=== PATIENT | male | born 1990 | race African-American/Black ===

== ENCOUNTER 2018-10-01 20:22 | Inpatient (IN) | payer MEDICAID ==
[~2018-10-01] VITALS: Ht 175.3 cm; Wt 90.7 kg
[2018-10-01] MEDS ORDERED: NKM (20:44)
[2018-10-01 20:50] VITALS: BP 126/80
--- NOTE | 2018-10-01 20:53 | NUR ---
ED Nurse Note: pt walked in due to lower abdominal pain x 2 days. pt stated he has diarrhea started yesterday. denies n and v. pt states his pain is located in the abdomen and and radiates to his anus. skin does not tent. pts eyes do not appear sunken. pt states his pain is 8/10 that feels sharp and throbing.
--- NOTE | 2018-10-01 20:59 | Emergency Room Report ---
History of Present Illness General Chief Complaint: Abdominal Pain Source: Patient Present Illness [facility] This is a 28-year-old male with no past medical history. He presents with chief complaint abdominal pain. Onset yesterday. He had severe sharp pain in the lower quadrant area. Comes and go. Have diarrhea but no vomiting. No loss of appetite. No fever chills with pain is 9 out of 10 at most severe. Denies any hematuria. Nothing made it better. Palpation makes it worse. Allergies: Coded Allergies: WOOL (Verified Allergy, Unknown, 10/01/18) Uncoded Allergies: PENICILLIN (Allergy, Unknown, 10/01/18) Patient History Past Medical History: none, see triage record, old chart reviewed Past Surgical History: none Pertinent Family History: none Social History: Denies: smoking Immunizations: other Reviewed Nursing Documentation: PMH: Agreed; PSxH: Agreed Nursing Documentation-PMH Past Medical History: No Stated History Review of Systems Eye: Denies: eye pain, blurred vision ENT: Denies: ear pain, nose congestion, throat swelling Respiratory: Denies: cough, shortness of breath Cardiovascular: Denies: chest pain, palpitations Gastrointestinal: Reports: abdominal pain, diarrhea; Denies: nausea, vomiting Musculoskeletal: Denies: back pain, joint pain Skin: Denies: rash Neurological: Denies: headache, numbness Endocrine: Denies: increased thirst, increased urine Hematologic/Lymphatic: Denies: easy bruising All Other Systems: negative except mentioned in HPI Physical Exam Vital Signs Date Time Temp Pulse Resp B/P (MAP) Pulse Ox O2 Delivery O2 Flow Rate FiO2 10/01/18 20:37 98.2 65 16 126/80 97 Room Air 10/01/18 20:50 99 vitals normal Sp02 EP Interpretation: reviewed, normal General Appearance: well appearing, no apparent distress, alert Head: normocephalic, atraumatic Eyes: bilateral eye PERRL, bilateral eye EOMI ENT: hearing grossly normal, normal pharynx Neck: full range of motion, supple, no meningismus Respiratory: chest non-tender, lungs clear, normal breath sounds Cardiovascular #1: regular rate, rhythm, no murmur Gastrointestinal: normal bowel sounds, no mass, no organomegaly, no bruit, non- distended, tenderness - Right lower quadrant Musculoskeletal: back normal, gait/station normal, normal range of motion Psychiatric: mood/affect normal Skin: warm/dry Medical Decision Making Diagnostic Impression: Primary Impression: Appendicitis, acute Qualified Codes: K35.30 - Acute appendicitis with localized peritonitis, without perforation or gangrene Additional Impression: LENNY (acute kidney injury) ER Course Patient presents with abdominal pain and has acute appendicitis on CT scan. Patient kept nothing by mouth. Antibiotic started. Patient will be admitted here. Dr. Keyes, surgeon, consulted. I contacted Dr. Santos for admission. Lab Results Impression labs with elevated creatine CT/MRI/US Diagnostic Results CT/MRI/US Diagnostic Results : Imaging Test Ordered: CT abdomen and pelvis Impression Read by radiologist. Early acute appendicitis Last Vital Signs Date Time Temp Pulse Resp B/P (MAP) Pulse Ox O2 Delivery O2 Flow Rate FiO2 10/01/18 20:50 98.2 61 16 126/80 97 Room Air 10/01/18 20:50 99 Status: improved Disposition: ADMITTED INPATIENT Condition: Serious Charles Pathak MD Oct 01, 2018 20:59
[2018-10-01] MEDS ORDERED: Morphine Sulfate 4mg/ml Inj (IV USE ONLY) IVP ONE ×2 (21:00→22:00)
[2018-10-01 21:24] LABS: ANION GAP 9 mmol/L (5-15); BLOOD UREA NITROGEN 14 mg/dL (7-18); CALCIUM 8.9 MG/DL (8.5-10.1); CARBON DIOXIDE 26 MMOL/L (21-32); CHLORIDE 106 MMOL/L (98-107); CREATININE 1.5 MG/DL (0.55-1.30); POTASSIUM 4.1 MMOL/L (3.5-5.1); SODIUM 141 MMOL/L (136-145)
[2018-10-01 21:29] LABS: APPEARANCE,URINE CLEAR; BILIRUBIN, URINE NEGATIVE (NEGATIVE); GLUCOSE, URINE (UA) NEGATIVE (NEGATIVE); KETONES,URINE 1+ (NEGATIVE); LEUKOCYTE ESTERASE ,URINE 1+ (NEGATIVE); NITRITE,URINE NEGATIVE (NEGATIVE); PH,URINE 6 (4.5-8.0); PROTEIN,URINE NEGATIVE (NEGATIVE); UROBILINOGEN,URINE 1 MG/DL (0.0-1.0)
[2018-10-01 21:29] LABS: ALANINE AMINOTRANSFERASE 26 U/L (12-78); ALBUMIN 3.8 G/DL (3.4-5.0); ALBUMIN/GLOBULIN RATIO 1.2 (1.0-2.7); ALKALINE PHOSPHATASE 77 U/L (46-116); ASPARTATE AMINO TRANSFERASE 14 U/L (15-37); BASOPHILS % (AUTO) 1.1 % (0.0-2.0); BILIRUBIN,TOTAL 0.3 MG/DL (0.2-1.0); EOSINOPHILS % (AUTO) 1.1 % (0.0-3.0); HEMATOCRIT 47.4 % (42.0-52.0); LYMPHOCYTES % (AUTO) 24.1 % (20.0-45.0); MEAN CORPUSCULAR VOLUME 92 FL (80-99); MONOCYTES % (AUTO) 4.5 % (1.0-10.0); NEUTROPHILS % (AUTO) 69.2 % (45.0-75.0); PLATELET COUNT 239 K/UL (150-450); RED BLOOD COUNT 5.13 M/UL (4.70-6.10); RED CELL DISTRIBUTION WIDTH 11.8 % (11.6-14.8); WHITE BLOOD COUNT 8.7 K/UL (4.8-10.8)
[2018-10-01 21:31] LABS: COLOR,URINE YELLOW
[2018-10-01] MEDS ORDERED: Piperacillin/Tazobactam 3.375 GM in NS 110 ML IVPB ONE (22:00)
[2018-10-01 22:24] VITALS: BP 128/83
--- NOTE | 2018-10-01 22:50 | Pre-Procedure Note/Attestation ---
Pre-Procedure Note/Attestation Complete Prior to Procedure Planned Procedure: not applicable Procedure Narrative: Laparoscopic Appendectomy possible open Appendectomy Indications for Procedure Pre-Operative Diagnosis: Acute appendicitis Attestation I attest that I discussed the nature of the procedure; its benefits; risks and complications; and alternatives (and the risks and benefits of such alternatives ), prior to the procedure, with the patient (or the patient's legal shipping services sales representative). I attest that, if there was a reasonable possibility of needing a blood transfusion, the patient (or the patient's legal shipping services sales representative) was given the [facility] standardized written summary, pursuant to the Abdiel Carlos Blood Safety Act ([place] Health and Safety Code # 1645, as amended). I attest that I re-evaluated the patient just prior to the surgery and that there has been no change in the patient's H&P, except as documented below: Wellington Keyes MD Oct 01, 2018 22:50
[2018-10-01] MEDS ORDERED: Bupivacaine w/Epi 0.5% 30ml Vial INJ ONE (22:52)
[2018-10-01] MEDS ORDERED: Bacitracin 50000 Units Vial ONE (22:52)
[2018-10-01] MEDS ORDERED: Bupivacaine 0.25% Inj 30ml INJ ONE (22:52)
[2018-10-01 22:57] VITALS: BP 133/78
[2018-10-01] MEDS ORDERED: Sterile Water Irrig 1000ml IRRIG ONE (23:00)
[2018-10-01] MEDS ORDERED: Midazolam 2mg/2ml Inj ONE (23:00)
[2018-10-01] MEDS ORDERED: LR 1000ml ONE (23:00)
[2018-10-01] MEDS ORDERED: fentaNYL 100 mcg/2 mL IV ONE (23:00)
[2018-10-01] MEDS ORDERED: NS Irrig 1000ml ONE (23:00)
[2018-10-01] MEDS ORDERED: Ketorolac 30mg Inj ONE (23:05)
[2018-10-01] MEDS ORDERED: Lidocaine 1% MPF 10mg/ml 5ml ONE (23:05)
[2018-10-01] MEDS ORDERED: Propofol 200mg/20ml IV ONE (23:05)
[2018-10-01] MEDS ORDERED: Zemuron 50mg/5ml Inj IV ONE (23:10)
[2018-10-01] MEDS ORDERED: Succinylcholine 20mg/ml 10ml vial ONE (23:10)
--- NOTE | 2018-10-01 23:13 | NUR ---
ED Nurse Note: Pt tranfered to OR. report given to KINDERGARTEN AIDE.
--- NOTE | 2018-10-01 23:30 | Pre-op HX & Phy Repo 2 SIG ---
DATE OF ADMISSION: 10/01/2018 CONSULTING PHYSICIAN: Wellington Keyes M.D. REQUESTING PHYSICIAN: ER physician. HISTORY OF PRESENT ILLNESS: This is a 28-year-old male, who presented with abdominal pain for two days. He stated the pain was initially periumbilical and then it localized at right lower quadrant. He denied any nausea or vomiting. He denied any fever. He has been having diarrhea since this morning. He denied fever, but he had mild cough. He denies dysuria or frequency. He denies any previous history of similar pain. PAST MEDICAL HISTORY: He claims to be allergic to penicillin. He denies diabetes, hypertension, cardiac or renal diseases. He had a history of asthma as a childhood. PAST SURGICAL HISTORY: None. MEDICATIONS: None. SOCIAL HISTORY: The patient is a 28-year-old male, single with no children. 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 Drinks occasionally. REVIEW OF SYSTEMS: Noncontributory. PHYSICAL EXAMINATION: GENERAL: The patient appeared to be a well-developed and well-nourished 28-year-old male, lying on the gurney complaining of abdominal pain. HEENT: Head is normocephalic and atraumatic. Eyes, pupils are equal, round, and reactive to light. Mouth is clear. NECK: There is no palpable thyromegaly or adenopathy. CHEST: Clear to auscultation and percussion. HEART: There is no gallop or murmur. S1 and S2 are within normal limits. ABDOMEN: Soft and flat with tenderness and guarding at the lower abdomen, which is more pronounced at the right lower quadrant. Bowel sounds are present. There is no palpable organomegaly. EXTREMITIES: Within normal limits. GENITAL: Normal LABORATORY DATA: CBC has shown WBC of 8600 with normal differential. Chemistry and UA is normal. CAT scan of the abdomen has been interpreted as early acute appendicitis. PLAN: After rehydration, the patient will undergo a laparoscopy appendectomy, possible open appendectomy. Risks and benefits have been explained to him. He understood and granted consent. Wellington Keyes M.D. DR: DAWNA JOB#: [id number] CC:
[2018-10-01] MEDS ORDERED: Neostigmine 1mg/ml 10ml Inj ONE (23:47)
[2018-10-01] MEDS ORDERED: Glycopyrrolate 0.2mg/ml 1ml Vial ONE (23:47)
[2018-10-01] MEDS ORDERED: LR 1000ml 1,000 ML IVLG SCH (23:54)
--- NOTE | 2018-10-01 23:54 | Anethesia Preoperative Eval ---
Anesthesia Pre-op PMH/ROS General Date of Evaluation: Oct 01, 2018 Time of Evaluation: 23:10 Anesthesiologist: Connie ASA Score: ASA 2 Mallampati Score Class I : Soft palate, uvula, fauces, pillars visible Class II: Soft palate, uvula, fauces visible Class III: Soft palate, base of uvula visible Class IV: Only hard plate visible Mallampati Classification: Class II Surgeon: Wali Diagnosis: Acute appendicitis Surgical Procedure: Lap appendectomy Anesthesia History: none Family History: no anesthesia problems Allergies: Coded Allergies: WOOL (Verified Allergy, Unknown, 10/01/18) Uncoded Allergies: PENICILLIN (Allergy, Unknown, 10/01/18) Patient NPO?: Yes Past Medical History Cardiovascular: Denies: HTN, CAD, PR, valve dz, arrhythmia, other Pulmonary: Denies: asthma, COPD, JAMAAL, other Gastrointestinal/Genitourinary: Reports: GERD - mild; Denies: CRI, ESRD, other Neurologic/Psychiatric: Denies: dementia, CVA, depression/anxiety, TIA, other Endocrine: Denies: DM, hypothyroidism, steroids, other HEENT: Denies: cataract (L), cataract (R), glaucoma, [place] (L), [place] PASS (R), other Hematology/Immune: Denies: anemia, DVT, bleeding disorder, other Musculoskeletal/Integumentary: Denies: OA, RA, DJD, DDD, edema, other PMH Narrative: Acute abdominal pain, PSxH Narrative: None Anesthesia Pre-op Phys. Exam Physician Exam Last Vital Signs Date Time Temp Pulse Resp B/P (MAP) Pulse Ox O2 Delivery O2 Flow Rate FiO2 10/01/18 22:57 98.2 69 16 133/78 99 Room Air 10/01/18 20:50 99 Constitutional: NAD Neurologic: CN 2-12 intact Cardiovascular: RRR, no M/R/G Respiratory: CTA Gastrointestinal: other - Some tenderness on palpation Airway Exam Mallampati Score: Class II MO: full Neck: flexible ROM: full Teeth: missing Dentures: no upper, no lower Anesthesia Pre-op A/P Labs Hematology Test 10/01/18 21:05 White Blood Count 8.7 K/UL (4.8-10.8) Red Blood Count 5.13 M/UL (4.70-6.10) Hemoglobin 16.0 G/DL (14.2-18.0) Hematocrit 47.4 % (42.0-52.0) Mean Corpuscular Volume 92 FL (80-99) Mean Corpuscular Hemoglobin 31.2 PG (27.0-31.0) H Mean Corpuscular Hemoglobin Concent 33.8 G/DL (32.0-36.0) Red Cell Distribution Width 11.8 % (11.6-14.8) Platelet Count 239 K/UL (150-450) Mean Platelet Volume 7.3 FL (6.5-10.1) Neutrophils (%) (Auto) 69.2 % (45.0-75.0) Lymphocytes (%) (Auto) 24.1 % (20.0-45.0) Monocytes (%) (Auto) 4.5 % (1.0-10.0) Eosinophils (%) (Auto) 1.1 % (0.0-3.0) Basophils (%) (Auto) 1.1 % (0.0-2.0) Chemistry Test 10/01/18 21:05 Sodium Level 141 MMOL/L (136-145) Potassium Level 4.1 MMOL/L (3.5-5.1) Chloride Level 106 MMOL/L (98-107) Carbon Dioxide Level 26 MMOL/L (21-32) Anion Gap 9 mmol/L (5-15) Blood Urea Nitrogen 14 mg/dL (7-18) Creatinine 1.5 MG/DL (0.55-1.30) H Estimat Glomerular Filtration Rate 55.3 mL/min (>60) Glucose Level 102 MG/DL (74-106) Calcium Level 8.9 MG/DL (8.5-10.1) Total Bilirubin 0.3 MG/DL (0.2-1.0) Aspartate Amino Transf (AST/SGOT) 14 U/L (15-37) L Alanine Aminotransferase (ALT/SGPT) 26 U/L (12-78) Alkaline Phosphatase 77 U/L (46-116) Total Protein 7.1 G/DL (6.4-8.2) Albumin 3.8 G/DL (3.4-5.0) Globulin 3.3 g/dL Albumin/Globulin Ratio 1.2 (1.0-2.7) Lipase 96 U/L (73-393) Risk Assessment & Plan Assessment: ASA 2 E Plan: GA with ETT PONV prevention Status Change Before Surgery: No Pre-Antibiotics Drug: as scheduled Chico Rosales MD Oct 01, 2018 23:54
[2018-10-02] VITALS (9 sets, daily range): BP systolic 111–153; BP diastolic 59–90
[2018-10-02] MEDS ORDERED: DiphenhydrAMINE 50mg/ml Inj IVP PRN
[2018-10-02] MEDS ORDERED: Meperidine 50mg/ml Inj(FOR RIGORS ONLY) IV PRN
[2018-10-02] MEDS ORDERED: Ketorolac 30mg Inj IV PRN
--- NOTE | 2018-10-02 00:04 | NUR ---
ED Nurse Note: Pt report given to Jeanne Ramirez from med surg. all information is reported such as vital signs, status and condition.
--- NOTE | 2018-10-02 00:12 | Brief Operative Note ---
Immediate Post Operative Note Operative Note Pre-op Diagnosis: Acute appendicitis Procedure: Lap Appy Post-op Diagnosis: R/O Acute Appendicitis pending path report Findings: consistent w/pre-op dx studies Surgeon: MD Marcus Labor Standards Director: None Anesthesiologist: Dr. Rosales Anesthesia: general Specimen: yes Complications: none Condition: stable Fluids: per anesthesiologist Estimated Blood Loss: minimal Drains: none Implant(s) used?: No Wellington Keyes MD Oct 02, 2018 00:12
[2018-10-02] MEDS ORDERED: Metoclopramide 10mg/2ml Inj IVP PRN ×2 (00:15)
[2018-10-02] MEDS ORDERED: Hydromorphone 0.5mg/0.5ml inj IVP PRN ×2 (00:15)
[2018-10-02] MEDS ORDERED: Acetaminophen 650 MG SUPP RECTAL PRN (00:15)
[2018-10-02] MEDS ORDERED: HYDROmorphone 1mg/ml Carpuject IVP PRN (00:15)
--- NOTE | 2018-10-02 00:27 | Immediate Post-Op Evaluation ---
Immediate Post-Op Evalulation Immediate Post-Op Evalulation Procedure: Laparoscopic apendectomy Date of Evaluation: Oct 02, 2018 Time of Evaluation: 00:26 IV Fluids: 1200 Blood Products: none Estimated Blood Loss: min Urinary Output: 200 Blood Pressure Systolic: 121 Blood Pressure Diastolic: 63 Pulse Rate: 68 Respiratory Rate: 20 O2 Sat by Pulse Oximetry: 99 Temperature (Fahrenheit): 97.6 Pain Score (1-10): 1 Nausea: No Vomiting: No Complications none Patient Status: reacts, patent, extubated, none Hydration Status: adequate Chico Rosales MD Oct 02, 2018 00:27
--- NOTE | 2018-10-02 00:50 | NUR ---
NURSE NOTES: Report taken from RAJENDRA Garcia. Patient currently in recovery room.
--- NOTE | 2018-10-02 01:30 | NUR ---
NURSE NOTES: Patient brought to room 319-2 via hospital bed. bedside report taken from RAJENDRA Lino. Reviewed patient belonging list at bedside. Patient showing no signs of distress, on 2L NC. A&Ox4. States that he is not having any pain yet, post op. Surgical sites c/d/i, no skin issues present. Vital signs stable upon admission to floor. IV site c/d/i and patent. SCDs present and on patient. Patient is to be NPO the duration of the night and will begin clear liquid diet for breakfast, per MD order. Urinal at bedside, mao kowalski D/C at 0015. Continue to monitor for pain. Bed in lowest position, call light within reach.
[2018-10-02] MEDS: D5 1/2NS w/KCl 20mEq 1,000 ML IV SCH ×2 (02:38→10:12)
--- NOTE | 2018-10-02 03:00 | Operative Note - Dictated ---
DATE OF OPERATION: 10/01/2018 PREOPERATIVE DIAGNOSIS: Acute appendicitis. POSTOPERATIVE DIAGNOSIS: Rule out acute appendicitis. Pending pathology evaluation. OPERATION: Laparoscopy appendectomy. COMPLICATIONS: None. SURGEON: Wellington Keyes M.D. BURR BENCH OPERATOR: None. ANESTHESIA: General with endotracheal tube. ANESTHESIOLOGIST: Chico Rosales M.D. INDICATION: This is a 28-year-old male, who presented to the emergency room complaining of 2 days history of abdominal pain. He stated that the pain initially was located in the periumbilical and then it localized at the lower abdomen, mainly on the right lower quadrant. He denied any fever, nausea, vomiting, dysuria or frequency, but he had diarrhea since this morning. PHYSICAL EXAMINATION: Showed tenderness at the lower abdomen, which seemed to be more pronounced at the right lower quadrant. CBC showed a WBC of 8700 with normal differential. Chemistry and UA was normal. CT scan of the abdomen was interpreted by the radiologist as acute early appendicitis. DESCRIPTION OF PROCEDURE: The patient was placed supine on the operating table and after general anesthesia with endotracheal tube, the abdomen was properly prepped and draped. Initially, a small incision was made above the umbilicus through which a Veress needle was introduced into the intraperitoneal cavity. This cavity was insufflated up to 15 mmHg and then the Veress needle was removed and a 5 mm trocar was placed in the intraperitoneal cavity through the incision above the umbilicus. Laparoscope and camera was introduced into the intraperitoneal cavity through the trocar above the umbilicus, and under direct vision, a 5 mm trocar was placed at the suprapubic area and a 12 mm trocar was placed at the left lower quadrant of the abdomen. A rapid exploration was performed which showed the diaphragms to be normal. The part of the stomach which could be seen was normal. Liver and gallbladder were normal. The bowels were covered with omentum. Exploration of the right lower quadrant cavity was performed and the appendix was identified, which seemed to be inflamed. Appendix was congested and mildly distended, but definitely it was not as inflamed as of 2 days acute appendicitis. There was adhesion of the omentum over the tip of the appendix which was removed. There was some bleeding. The appendix and mesoappendix was isolated and exposed. The base of the appendix was retroperitoneal, but I could see the base very clearly. So, the mesoappendix was ligated and transected with the help of the RASHAWN stapler. The appendix was removed from the intraperitoneal cavity. The area was explored, which showed that we probably left a small stump about 3 to 4 mm. The right lower quadrant had a paracolic gutter and the pelvis was thoroughly irrigated with antibiotic solution. Another exploration was performed, which failed to show any bleeding or complication. The trocars were removed under direct vision. The incision of the fascia at the left lower quadrant cavity was approximated with a [id number] suture of #0 Vicryl. The incisions were infiltrated with a total of 30 mL of Marcaine 0.25% and the subcutaneous tissue was approximated with 4-0 chromic and the skin incisions were approximated with running subcuticular suture of 4-0 chromic. The patient tolerated the procedure very well and was transferred to recovery room in stable condition and extubated. The sponge and needle count correct. Estimated blood loss 10 mL. Condition of the patient at the end of procedure is stable. Wellington Keyes M.D. DR: RAGHAV JOB#: [id number] CC:
[2018-10-02 07:18] LABS: ANION GAP 9 mmol/L (5-15); BLOOD UREA NITROGEN 10 mg/dL (7-18); CALCIUM 8.1 MG/DL (8.5-10.1); CARBON DIOXIDE 24 MMOL/L (21-32); CHLORIDE 108 MMOL/L (98-107); CREATININE 1.3 MG/DL (0.55-1.30); POTASSIUM 4.4 MMOL/L (3.5-5.1); SODIUM 141 MMOL/L (136-145)
--- NOTE | 2018-10-02 07:21 | NUR ---
NURSE NOTES: AWAKE/ALERT. NPO MAINTAINED FOR EGD AND COLONOSCOPY. IN NO ACUTES DISTRESS. Addendum: 10/02/18 at 0723 by EMILY CMNEAL RN REGARD ABOVE NOTATION. INCORRECT PT.
[2018-10-02 07:44] LABS: BASOPHILS % (AUTO) 0.9 % (0.0-2.0); HEMATOCRIT 44.1 % (42.0-52.0); HEMOGLOBIN 14.9 G/DL (14.2-18.0); LYMPHOCYTES % (AUTO) 23.1 % (20.0-45.0); MEAN CORPUSCULAR VOLUME 92 FL (80-99); MONOCYTES % (AUTO) 5.8 % (1.0-10.0); NEUTROPHILS % (AUTO) 69.1 % (45.0-75.0); PLATELET COUNT 174 K/UL (150-450); RED BLOOD COUNT 4.81 M/UL (4.70-6.10); RED CELL DISTRIBUTION WIDTH 11.7 % (11.6-14.8); WHITE BLOOD COUNT 9.3 K/UL (4.8-10.8)
--- NOTE | 2018-10-02 07:45 | NUR ---
HAND-OFF: Report given to RAJENDRA Kiser.
--- NOTE | 2018-10-02 07:48 | NUR ---
NURSE NOTES: AWAKE/ALERT. NO C/O PAIN.ABDOMINAL DRESSING INTACT WITH OLD STAIN. IN NO DISTRESS.
[2018-10-02] MEDS ORDERED: Pantoprazole Inj IVP SCH (09:00)
--- NOTE | 2018-10-02 10:01 | Diagnostic Imaging Report ---
Indication: Lower abdominal pain which comes and goes, 9 out of 10 when most severe, tenderness to palpation Technique: Spiral acquisitions obtained through the abdomen and pelvis. No oral contrast utilized, per emergency room physician request No IV contrast utilized, per referring physician request.. Multiplanar reconstructions were generated. Total dose length product 899.3 mGycm. CTDIvol(s) 17.05 mGy. Dose reduction achieved using automated exposure control Comparison: None Findings: The appendix is slightly prominent caliber, but contains gas in the base, midportion and tip and there is no significant periappendiceal inflammation. No evidence of diverticulosis or diverticulitis. No bowel distention. Distal esophagus, stomach, duodenum are all unremarkable. Lack of IV contrast limits assessment of the solid organs. The liver is grossly unremarkable. The gallbladder is nondistended. The pancreas, spleen, adrenals, kidneys are all unremarkable. No mesenteric or retroperitoneal mass or adenopathy. No pelvic mass or adenopathy. The included lung bases are clear. The bones are unremarkable. Impression: Negative. Somewhat prominent but otherwise unremarkable appearing appendix. Note that findings represent a discrepancy from the [facility] preliminary report. Discrepant findings were discussed by phone with the admitting physician Dr. Keyes at approximately 9:00 AM, and provided to [facility] via their website The CT scanner at [facility] is accredited by the [employer] and the scans are performed using protocols designed to limit radiation exposure to as low as reasonably achievable to attain images of sufficient resolution adequate for diagnostic evaluation.
--- NOTE | 2018-10-02 10:30 | NUR ---
NURSE NOTES: STATES PT PASSING GAS.
--- NOTE | 2018-10-02 10:45 | NUR ---
NURSE NOTES: ASSISTED OOB, AMBULATED OUT IN THE RILEY TOLERATED.
--- NOTE | 2018-10-02 10:57 | GI Initial Consult Note ---
History of Present Illness General Date patient seen: Oct 02, 2018 Time patient seen: 10:53 Reason for Hospitalization: Abdominal Pain Referring physician: DIANNA HODGE Reason for Consultation: ABDOMINAL PAIN Present Illness HPI This is a 28-year-old male with no past medical history. He presents with chief complaint abdominal pain. Onset yesterday. He had severe sharp pain in the lower quadrant area. Comes and go. Have diarrhea but no vomiting. No loss of appetite. No fever chills with pain is 9 out of 10 at most severe. Denies any hematuria. Nothing made it better. Palpation makes it worse. GI consulted for abdominal pain. Patient is now status post laparoscopic appendectomy. Patient seen, awake alert and oriented x4 has abdominal pain secondary to the surgical incision. However patient states that his initial sharp pain is mainly resided. Labs reviewed, mainly unremarkable. No history of endoscopic colonoscopy. Home Meds Reported Medications No Known Medications* (NKM - No Known Medications*) ., 0 ., 0 Refills 10/01/18 Med list reviewed/reconciled: Yes Allergies: Coded Allergies: WOOL (Verified Allergy, Unknown, 10/01/18) Uncoded Allergies: PENICILLIN (Allergy, Unknown, 10/01/18) Patient History History Provided By: Patient, Medical Record PMH Narrative Past Medical History: none, see triage record, old chart reviewed Past Surgical History: none Pertinent Family History: none Social History: Denies: smoking Immunizations: other Reviewed Nursing Documentation: PMH: Agreed; PSxH: Agreed Nursing Documentation-PM Past Medical History: No Stated History Social History: Denies: smoking, alcohol use, drug use, other Review of Systems All Other Systems: negative except mentioned in HPI Physical Exam Vital Signs Date Time Temp Pulse Resp B/P (MAP) Pulse Ox O2 Delivery O2 Flow Rate FiO2 10/01/18 20:37 98.2 65 16 126/80 97 Room Air 10/01/18 20:50 99 10/02/18 00:22 8 Sp02 EP Interpretation: reviewed, normal Labs Laboratory Tests Test 10/01/18 21:02 10/01/18 21:05 10/02/18 06:25 Urine Color Yellow Urine Appearance Clear Urine pH 6 (4.5-8.0) Urine Specific [place] 1.025 (1.005-1.035) Urine Protein Negative (NEGATIVE) Urine Glucose (UA) Negative (NEGATIVE) Urine Ketones 1+ (NEGATIVE) H Urine Blood Negative (NEGATIVE) Urine Nitrite Negative (NEGATIVE) Urine Bilirubin Negative (NEGATIVE) Urine Urobilinogen 1 MG/DL (0.0-1.0) H Urine Leukocyte Esterase 1+ (NEGATIVE) H Urine RBC 0-2 /HPF (0 - 0) H Urine WBC 2-4 /HPF (0 - 0) Urine Squamous Epithelial Cells None /LPF (NONE/OCC) Urine Bacteria Few /HPF (NONE) White Blood Count 8.7 K/UL (4.8-10.8) 9.3 K/UL (4.8-10.8) Red Blood Count 5.13 M/UL (4.70-6.10) 4.81 M/UL (4.70-6.10) Hemoglobin 16.0 G/DL (14.2-18.0) 14.9 G/DL (14.2-18.0) Hematocrit 47.4 % (42.0-52.0) 44.1 % (42.0-52.0) Mean Corpuscular Volume 92 FL (80-99) 92 FL (80-99) Mean Corpuscular Hemoglobin 31.2 PG (27.0-31.0) H 31.1 PG (27.0-31.0) H Mean Corpuscular Hemoglobin Concent 33.8 G/DL (32.0-36.0) 33.8 G/DL (32.0-36.0) Red Cell Distribution Width 11.8 % (11.6-14.8) 11.7 % (11.6-14.8) Platelet Count 239 K/UL (150-450) 174 K/UL (150-450) Mean Platelet Volume 7.3 FL (6.5-10.1) 7.3 FL (6.5-10.1) Neutrophils (%) (Auto) 69.2 % (45.0-75.0) 69.1 % (45.0-75.0) Lymphocytes (%) (Auto) 24.1 % (20.0-45.0) 23.1 % (20.0-45.0) Monocytes (%) (Auto) 4.5 % (1.0-10.0) 5.8 % (1.0-10.0) Eosinophils (%) (Auto) 1.1 % (0.0-3.0) 1.0 % (0.0-3.0) Basophils (%) (Auto) 1.1 % (0.0-2.0) 0.9 % (0.0-2.0) Sodium Level 141 MMOL/L (136-145) 141 MMOL/L (136-145) Potassium Level 4.1 MMOL/L (3.5-5.1) 4.4 MMOL/L (3.5-5.1) Chloride Level 106 MMOL/L (98-107) 108 MMOL/L (98-107) H Carbon Dioxide Level 26 MMOL/L (21-32) 24 MMOL/L (21-32) Anion Gap 9 mmol/L (5-15) 9 mmol/L (5-15) Blood Urea Nitrogen 14 mg/dL (7-18) 10 mg/dL (7-18) Creatinine 1.5 MG/DL (0.55-1.30) H 1.3 MG/DL (0.55-1.30) Estimat Glomerular Filtration Rate 55.3 mL/min (>60) > 60 mL/min (>60) Glucose Level 102 MG/DL (74-106) 112 MG/DL (74-106) H Calcium Level 8.9 MG/DL (8.5-10.1) 8.1 MG/DL (8.5-10.1) L Total Bilirubin 0.3 MG/DL (0.2-1.0) Aspartate Amino Transf (AST/SGOT) 14 U/L (15-37) L Alanine Aminotransferase (ALT/SGPT) 26 U/L (12-78) Alkaline Phosphatase 77 U/L (46-116) Total Protein 7.1 G/DL (6.4-8.2) Albumin 3.8 G/DL (3.4-5.0) Globulin 3.3 g/dL Albumin/Globulin Ratio 1.2 (1.0-2.7) Lipase 96 U/L (73-393) General Appearance: well appearing, no apparent distress, alert Head: normocephalic EENT: PERRL/EOMI, normal ENT inspection Neck: supple Respiratory: normal breath sounds, no respiratory distress Cardiovascular: normal rate Gastrointestinal: normal inspection, non tender, soft, normal bowel sounds, non -distended, other - Surgical incisions Rectal: deferred Genitourinary: deferred Musculoskeletal: normal inspection, back normal Neurologic: normal inspection, alert, oriented x3, responsive Psychiatric: normal inspection, judgement/insight normal, memory normal Skin: normal inspection, normal color, no rash, warm/dry, palpation normal, well hydrated Lymphatic: normal inspection, no adenopathy Current Medications Current Medications Medications (Trade) Dose Ordered Sig/Asad Route PRN Reason Start Time Stop Time Status Last Admin Dose Admin Acetaminophen (Tylenol) 650 mg Q4H PRN RECTAL FEVER 10/02/18 00:15 11/01/18 00:14 Dextrose/ Electrolytes 1,000 ml @ 100 mls/hr Q10H IV 10/02/18 00:12 11/01/18 00:11 10/02/18 02:38 Hydromorphone HCl (Dilaudid) 0.5 mg Q3H PRN IVP Pain Score 1-3 10/02/18 00:15 10/09/18 00:14 Hydromorphone HCl (Dilaudid) 1 mg Q3H PRN IVP pain score 4-6 10/02/18 00:15 10/09/18 00:14 10/02/18 03:12 Metoclopramide HCl (Reglan) 10 mg Q6H PRN IVP Nausea & Vomiting 10/02/18 00:15 11/01/18 00:14 Ondansetron HCl (Zofran) 4 mg Q6H PRN IVP Nausea & Vomiting 10/02/18 00:15 11/01/18 00:14 Pantoprazole (Protonix) 40 mg DAILY IVP 10/02/18 09:00 11/01/18 08:59 10/02/18 08:35 GI: Plan Problems: (1) Postoperative nausea and vomiting (2) Appendicitis, acute Plan Status post laparoscopic appendectomy Symptomatic treatment at this time We will monitor for postoperative nausea and vomiting, Zofran as needed versus Reglan for persistent vomiting Advance diet as tolerated per surgery Pain management Ppi Antibiotics Follow labs Discussed with Dr. Tanner. Thank you for this patient referral, we will follow. The patient was seen and examined at bedside and all new and available data was reviewed in the patients chart. I agree with the above findings, impression and plan. (Patient seen earlier today. Signature stamp does not reflect patient encounter time.). - MD [facility] Oct 02, 2018 10:57
--- NOTE | 2018-10-02 13:04 | General Surgery Progress Note ---
General Surgery-Progress Note Subjective Procedure Performed Lap Appy Symptoms: improved, passing flatus Objective Last 24 Hour Vital Signs Date Time Temp Pulse Resp B/P (MAP) Pulse Ox O2 Delivery O2 Flow Rate FiO2 10/02/18 09:05 Room Air 10/02/18 08:00 97.7 63 18 153/74 (100) 99 10/02/18 04:00 97.6 75 19 111/59 (76) 100 10/02/18 02:00 Room Air 2.0 10/02/18 01:02 97.4 61 20 121/76 100 Nasal Cannula 3 10/02/18 00:56 61 20 121/81 100 Nasal Cannula 3 10/02/18 00:46 63 20 132/89 100 Nasal Cannula 3 10/02/18 00:32 63 20 138/90 100 Nasal Cannula 3 10/02/18 00:27 71 20 122/84 100 Simple Mask 8 10/02/18 00:27 68 20 99 10/02/18 00:22 97.2 68 20 121/63 100 Simple Mask 8 10/02/18 00:03 98.2 69 16 133/78 99 Room Air 99 10/01/18 22:57 98.2 69 16 133/78 99 Room Air 10/01/18 22:45 98.2 10/01/18 22:24 98.2 63 15 128/83 98 Room Air 10/01/18 21:48 98.2 10/01/18 20:50 98.2 61 16 126/80 97 Room Air 10/01/18 20:50 65 16 Room Air 99 10/01/18 20:37 98.2 65 16 126/80 97 Room Air I&O Intake and Output 10/01/18 10/02/18 19:00 07:00 Intake Total 1300 ml Output Total 475 ml Balance 825 ml Intake IV Total 1300 ml Output Urine Total 450 ml Estimated Blood Loss 25 ml Respiratory: clear Abdomen: soft, flat, non-tender, present bowel sounds Extremities: no tenderness Laboratory Tests Test 10/01/18 21:02 10/01/18 21:05 10/02/18 06:25 Urine Color Yellow Urine Appearance Clear Urine pH 6 (4.5-8.0) Urine Specific [place] 1.025 (1.005-1.035) Urine Protein Negative (NEGATIVE) Urine Glucose (UA) Negative (NEGATIVE) Urine Ketones 1+ (NEGATIVE) H Urine Blood Negative (NEGATIVE) Urine Nitrite Negative (NEGATIVE) Urine Bilirubin Negative (NEGATIVE) Urine Urobilinogen 1 MG/DL (0.0-1.0) H Urine Leukocyte Esterase 1+ (NEGATIVE) H Urine RBC 0-2 /HPF (0 - 0) H Urine WBC 2-4 /HPF (0 - 0) Urine Squamous Epithelial Cells None /LPF (NONE/OCC) Urine Bacteria Few /HPF (NONE) White Blood Count 8.7 K/UL (4.8-10.8) 9.3 K/UL (4.8-10.8) Red Blood Count 5.13 M/UL (4.70-6.10) 4.81 M/UL (4.70-6.10) Hemoglobin 16.0 G/DL (14.2-18.0) 14.9 G/DL (14.2-18.0) Hematocrit 47.4 % (42.0-52.0) 44.1 % (42.0-52.0) Mean Corpuscular Volume 92 FL (80-99) 92 FL (80-99) Mean Corpuscular Hemoglobin 31.2 PG (27.0-31.0) H 31.1 PG (27.0-31.0) H Mean Corpuscular Hemoglobin Concent 33.8 G/DL (32.0-36.0) 33.8 G/DL (32.0-36.0) Red Cell Distribution Width 11.8 % (11.6-14.8) 11.7 % (11.6-14.8) Platelet Count 239 K/UL (150-450) 174 K/UL (150-450) Mean Platelet Volume 7.3 FL (6.5-10.1) 7.3 FL (6.5-10.1) Neutrophils (%) (Auto) 69.2 % (45.0-75.0) 69.1 % (45.0-75.0) Lymphocytes (%) (Auto) 24.1 % (20.0-45.0) 23.1 % (20.0-45.0) Monocytes (%) (Auto) 4.5 % (1.0-10.0) 5.8 % (1.0-10.0) Eosinophils (%) (Auto) 1.1 % (0.0-3.0) 1.0 % (0.0-3.0) Basophils (%) (Auto) 1.1 % (0.0-2.0) 0.9 % (0.0-2.0) Sodium Level 141 MMOL/L (136-145) 141 MMOL/L (136-145) Potassium Level 4.1 MMOL/L (3.5-5.1) 4.4 MMOL/L (3.5-5.1) Chloride Level 106 MMOL/L (98-107) 108 MMOL/L (98-107) H Carbon Dioxide Level 26 MMOL/L (21-32) 24 MMOL/L (21-32) Anion Gap 9 mmol/L (5-15) 9 mmol/L (5-15) Blood Urea Nitrogen 14 mg/dL (7-18) 10 mg/dL (7-18) Creatinine 1.5 MG/DL (0.55-1.30) H 1.3 MG/DL (0.55-1.30) Estimat Glomerular Filtration Rate 55.3 mL/min (>60) > 60 mL/min (>60) Glucose Level 102 MG/DL (74-106) 112 MG/DL (74-106) H Calcium Level 8.9 MG/DL (8.5-10.1) 8.1 MG/DL (8.5-10.1) L Total Bilirubin 0.3 MG/DL (0.2-1.0) Aspartate Amino Transf (AST/SGOT) 14 U/L (15-37) L Alanine Aminotransferase (ALT/SGPT) 26 U/L (12-78) Alkaline Phosphatase 77 U/L (46-116) Total Protein 7.1 G/DL (6.4-8.2) Albumin 3.8 G/DL (3.4-5.0) Globulin 3.3 g/dL Albumin/Globulin Ratio 1.2 (1.0-2.7) Lipase 96 U/L (73-393) Assessment Post-op Diagnosis R/O Acute Appendicitis pending path report Plan Additional Comments patient wants to leave the hospital does not listen Wellington Keyes MD Oct 02, 2018 13:04
--- NOTE | 2018-10-02 13:06 | Discharge Instructions ---
Discharge Instructions Discharge Instructions Follow up with: my office in one week Diet: full liquid Resume Normal Activity?: Yes Activity: as tolerated For Surgical Patients Clean and Dry: other - leave dressing alone for 3 days May shower: Yes For Congestive Heart Failure Reminder Report to your physician any weight gain of 5 pounds or more in one week. Wellington Keyes MD Oct 02, 2018 13:06
--- NOTE | 2018-10-02 13:15 | NUR ---
NURSE NOTES: DR Paul HODGE CALLED TO INFORM PT FOR DISCHARGE. LEFT MESSAGE TO RETURN CALL.
[2018-10-02] MEDS ORDERED: CIPRO500 MG PO (13:16)
--- NOTE | 2018-10-02 13:16 | NUR ---
CASE MANAGEMENT:REVIEW 10/01/18 28 YR OLD MALE FROM HOME CC; ABDOMINAL PAIN X2 DAYS SI: ACUTE APPENDICITIS. LENNY 98.2 65 16 126/80 97% ON RA CR+1.5 IS: IV ZOFRAN X1 1L NS BOLUS X1 IV MORPHINE X1 IV ZOSYN X1 CT ABD/PELVIS ; TO MED/SURG 3 EAST 10/02/18 SI: APPENDICITIS 97.7 63 18 153/74 99% ON RA IS: TO SURGERY FOR LAPAROSCOPIC APPENDECTOMY IV PROTONIX QD IV DILAUDID Q3HRS IVF@100/HR ; MED/SURG 3 PLAN: DISCHARGE HOME
--- NOTE | 2018-10-02 13:30 | NUR ---
NURSE NOTES: DISCHARGED HOME PER WHEELCHAIR ACCPD BY FRIEND IN STABLE CONDITION. DC INSTRUCTIONS AND RX GIVEN.
--- NOTE | 2018-10-02 19:00 | History and Physical Report ---
DATE OF ADMISSION: 10/01/2018 HISTORY OF PRESENT ILLNESS: The patient basically comes in. He was taken emergently for appendectomy by Dr. Keyes. The patient was admitted for appendicitis, had abdominal pain and chills as well as nausea. Dr. Keyes took the patient emergently to the operating room and had a laparoscopic cholecystectomy. PAST MEDICAL HISTORY: GERD. PAST SURGICAL HISTORY: None. SOCIAL HISTORY: No history of alcohol or illicit drugs. REVIEW OF SYSTEMS: HEENT: Denies headaches. PULMONARY: Denies shortness of breath. Denies cough. CARDIOVASCULAR: Denies chest pain. GASTROINTESTINAL: Reports abdominal pain associated with nausea and chills. EXTREMITIES: Denies pain in the lower extremities. CENTRAL NERVOUS SYSTEM: No change in vision or speech pattern. PHYSICAL EXAMINATION: VITAL SIGNS: Temperature 97.2, pulse 78, and blood pressure 132/70. HEENT: PERRLA. NECK: Supple. No lymphadenopathy. CHEST: Clear to auscultation CARDIOVASCULAR: Regular rate and rhythm. No murmurs or extra sounds. ABDOMEN: Does have abdominal pain especially in the right lower quadrant. EXTREMITIES: Reflexes are equal on both sides. Moves all four extremities. NEUROLOGIC: Sensory intact to touch. LABORATORY AND DIAGNOSTIC DATA: Significant for elevated leukocytosis. ASSESSMENT: Acute appendicitis, status post laparoscopic cholecystectomy by Dr. Keyes and cleared by Dr. Keyes . Aly Womack M.D. DR: Reid JOB#: [id number] CC:
--- NOTE | 2018-10-03 06:40 | Discharge Summary ---
Discharge Summary Discharge Summary _ DATE OF ADMISSION: 10/01/2018 DATE OF DISCHARGE: 10/02/2018 DISCHARGED BY: Dr. Aly Santos CONSULTANTS: Dr. Wellington Tanner BRIEF HOSPITAL COURSE: Patient is a 28-year-old male, no past medical history. He presented to ED complaining of abdominal pain. Onset was the day prior. Pain was severe, described to be sharp, and was located on the lower quadrant area. He had diarrhea but no vomiting. There was no loss of appetite. He denied fever or chills. Denies hematuria. ED, vital signs are stable. He was afebrile. Blood work showed elevated creatinine levels to 1.5. LFTs, alkaline phosphatase, and lipase were normal. Urinalysis negative. CT of the abdomen and pelvis showed early acute appendicitis. He was placed on n.p.o. Surgical consultation was obtained. He was admitted for evaluation of acute appendicitis. He was given IV hydration. On 10/01/2018, he underwent laparoscopic appendectomy. He tolerated procedure well. Following day, diet was advanced. Patient was passing flatus. He was eager to go home. He was eventually discharged home. To follow-up in a week. FINAL DIAGNOSES: Abdominal pain possibly secondary to acute appendicitis status post laparoscopic appendectomy DISPOSITION: Patient was discharged home. DISCHARGE MEDICATIONS: Refer to Discharge Medication List. Ciprofloxacin 500 mg p.o. twice daily for 5 more days. DISCHARGE INSTRUCTIONS: Follow-up in a week. I have been assigned to complete a discharge summary on this account, I was not involved with the patient's management. Callie Callahan NP Oct 03, 2018 06:40
[2018-10-03 14:44] VITALS: BP 132/56
--- NOTE | 2018-10-03 14:44 | 48 Hour Post Anesthesia Eval ---
Post Anesthesia Evaluation Procedure: Laparoscopic apendectomy Date of Evaluation: Oct 02, 2018 Time of Evaluation: 10:20 Blood Pressure Systolic: 132 0: 56 Pulse Rate: 78 Respiratory Rate: 20 Temperature (Fahrenheit): 97.6 O2 Sat by Pulse Oximetry: 98 Airway: patent Nausea: No Vomiting: No Pain Intensity: 1 Hydration Status: adequate Cardiopulmonary Status: stable Mental Status/LOC: patient returned to baseline Follow-up Care/Observations: n/a Post-Anesthesia Complications: none Follow-up care needed: ready to discharge [place] Rosales MD Oct 03, 2018 14:44
== END 2018-10-02 13:30 | disposition home or self-care (01) | DRG 234 ==
LOC: EMR 21:05 → 4E 22:20 → EDBEDREQ 23:36 → 4E 10-02 02:02 → 3E 10-02 02:04
PROC: 0DTJ4ZZ Resection of Appendix, Percutaneous Endoscopic Approach (ICD-10-PCS; principal; 2018-10-01 23:00)
DX: K35.80 Unspecified acute appendicitis (principal); F17.200 Nicotine dependence, unspecified, uncomplicated; Z88.0 Allergy status to penicillin; K21.9 Gastro-esophageal reflux disease without esophagitis
CPT/HCPCS: 36415; 74176; 80048; 80053; 81003; 83690; 85025; 94003; 94150; 96361; 96365; 96375; 96376; 99285; J2250; J2405; J2710